=== PATIENT | female | born 1970 | race Caucasian/White ===

== ENCOUNTER → 2016-06-12 | Outpatient (CLI) | payer OTHER ==
[~2016-06-12] MED LIST: ADVAIR 100-501 EAC1 IH; ALBUTEROL17 GM INH; ATACAND16 MG PO; AUGMENTIN875 M1 PO; CALCIUM 600 + D1 TA1 PO; CARAFATE1 GM PO; CRESTOR PO; DULERA 200 MCG/13 GM INH; EFFEXOR75 M3 PO; FLONASE 0.05% N16 G1; GABAPENTIN300 MG PO; MAG-OXIDE400 MG PO; MELATONIN10 M1 PO; MIRALAX255 GM PO; MOBIC15 MG PO; MOTION RELIEF25 MG PO; MUCUS AND COUG1 EACH PO; NATURE THROID PO; PROTONIX PO; RIZATRIPTAN10 M2 PO; ROBAXIN PO; SINGULAIR PO; SULFATRIM 800-120 ML; VALACYCLOVIR1000 MG PO; VITAMIN B-122000 MC1 PO; XOPENEX1.25 MG/3 IH; ZYRTEC10 M2 PO
== END | disposition home or self-care (01) ==
LOC: CLAB 10:59
DX: R10.9 Unspecified abdominal pain (principal)
CPT/HCPCS: 36415; 86677